=== PATIENT | female | born 1995 | race American Indian/Alaskan Native ===

== ENCOUNTER 2018-12-19 16:45 | Emergency (ER) | payer BC ==
[2018-12-19] MEDS ORDERED: DiphenhydrAMINE 12.5 mg/5 ml LIQ UD (5 ml) PO STA (17:00)
--- NOTE | 2018-12-19 17:11 | ED PDOC ---
Arrival/HPI - General Chief Complaint: Abnormal Skin Integrity Historian: Patient - History of Present Illness Narrative History of Present Illness (Text): 12/19/18 17:08 23yo female with pmhx of Diabetes and Asthma who present with complaint of pruritic rash since last night. States she is not sure what she is allergic to. Notes that she took Benadryl with mild relieve. Denies any new lotion/medication//food any other inciting factors, SOB, chest pain, tongue swelling, stridor. Past Medical History - Provider Review Nursing Documentation Reviewed: Yes - Infectious Disease Hx of Infectious Diseases: None - Reproductive Currently : No - Pulmonary Hx Asthma: Yes - Endocrine/Metabolic Hx Diabetes Mellitus Type 2: Yes - Musculoskeletal/Rheumatological Hx Musculoskeletal Disorders: No - Psychiatric Hx Substance Use: No - Anesthesia Hx Anesthesia: No Hx Anesthesia Reactions: No Hx Malignant Hyperthermia: No Family/Social History - Physician Review Nursing Documentation Reviewed: Yes Family/Social History: Unknown Family HX Smoking Status: Never Smoked Hx Alcohol Use: No Hx Substance Use: No Allergies/Home Meds Allergies/Adverse Reactions: Allergies No Known Allergies Allergy (Verified 11/14/16 18:45) Home Medications: Home Meds Medication Instructions Recorded Confirmed Albiglutide [Tanzeum] 50 mg SC QWK 11/14/16 11/14/16 Review of Systems - Physician Review All systems were reviewed & negative as marked: Yes - Review of Systems Constitutional: Normal Eyes: Normal ENT: Normal Respiratory: Normal Cardiovascular: Normal Gastrointestinal: Normal Genitourinary Female: Normal Musculoskeletal: Normal Skin: Rash, Pruritis Neurological: Normal Endocrine: Normal Hemo/Lymphatic: Normal Psychiatric: Normal Physical Exam Vital Signs Reviewed: Yes Temperature: Afebrile Blood Pressure: Normal Pulse: Regular Respiratory Rate: Normal Appearance: Positive for: Well-Appearing, Non-Toxic, Comfortable Pain Distress: None Mental Status: Positive for: Alert and Oriented X 3 - Systems Exam Head: Present: Atraumatic, Normocephalic Pupils: Present: PERRL Extroacular Muscles: Present: EOMI Conjunctiva: Present: Normal Mouth: Present: Moist Mucous Membranes Neck: Present: Normal Range of Motion Respiratory/Chest: Present: Clear to Auscultation, Good Air Exchange. No: Respiratory Distress, Accessory Muscle Use Cardiovascular: Present: Regular Rate and Rhythm, Normal S1, S2. No: Murmurs Abdomen: No: Tenderness, Distention, Peritoneal Signs Back: Present: Normal Inspection Upper Extremity: Present: Normal Inspection. No: Cyanosis, Edema Lower Extremity: Present: Normal Inspection. No: Edema Neurological: Present: GCS=15, CN II-XII Intact, Speech Normal Skin: Present: Warm, Dry, Rashes (Papular rash noted to b/l forearm), Normal Color Psychiatric: Present: Alert, Oriented x 3, Normal Insight, Normal Concentration Medical Decision Making ED Course and Treatment: 12/20/18 01:59 PT presented to ED for stated history. she was in no distress. No stridor. No drooling. She was treated with Benadryl, pepcid and prednisone and DC home with same medication. Referred to Assignment Manager/[employer]icer [employer] - Medication Orders Current Medication Orders: Discontinued Medications Diphenhydramine HCl (Benadryl) 25 mg PO STAT STA Stop: 12/19/18 17:01 Famotidine (Pepcid) 20 mg PO STAT STA Stop: 12/19/18 17:01 Prednisone (Prednisone Tab) 40 mg PO STAT STA Stop: 12/19/18 17:01 Disposition/Present on Arrival - Present on Arrival Any Indicators Present on Arrival: No History of DVT/PE: No History of Uncontrolled Diabetes: No Urinary Catheter: No History of Decub. Ulcer: No History Surgical Site Infection Following: None - Disposition Have Diagnosis and Disposition been Completed?: Yes Diagnosis: Allergic reaction Disposition: HOME/ ROUTINE Disposition Time: 17:10 Patient Plan: Discharge Condition: STABLE Discharge Instructions (ExitCare): Hives (DC) Additional Instructions: Follow up with a Assignment Manager/[employer]icer [employer] Return to ED for any new or worsening symptoms Prescriptions: Famotidine [Pepcid] 20 mg PO DAILY #10 tab predniSONE [Prednisone] 20 mg PO DAILY #6 tab Referrals: Misbah Presley MD [Staff Provider] - Follow up with primary Forms: [employer] ([place]), WORK NOTE
[2018-12-19 17:30] VITALS: RESP 18; TEMP 98.6; O2SAT 100
[2018-12-19 18:52] VITALS: BP 110/61; PULSE 85
== END 2018-12-19 18:45 | disposition home or self-care (01) ==
LOC: ED 16:45
DX: T78.40XA Allergy, unspecified, initial encounter (principal); X58.XXXA Exposure to other specified factors, initial encounter; E11.9 Type 2 diabetes mellitus without complications